=== PATIENT | male | born 1990 | race Caucasian/White ===

== ENCOUNTER 2017-01-17 20:20 | Emergency (ER) | payer SELFPAY ==
[2017-01-17] MEDS ORDERED: KETOROLAC TROMETHAMINE 60 MG/2 ML VIAL ONE (21:08)
--- NOTE | 2017-01-18 07:35 | RAD ---
Exam: Three-view left ankle COMPARISON: None INDICATION: Slip and fall, left ankle pain. FINDINGS: AP, lateral and oblique views of the left ankle were obtained. Mild soft tissue swelling is identified about the ankle and a small joint effusion cannot be excluded. Overall normal bone mineralization. Small sclerotic densities are seen within the talar dome and proximal first metatarsal, likely benign bone islands. No acute fracture is identified. Ankle mortise is intact. IMPRESSION: Mild soft tissue swelling and possible small joint effusion, however no acute osseous abnormality is identified within the left ankle.
== END 2017-01-17 21:43 | disposition home or self-care (01) ==
LOC: ED 20:20
DX: S93.402A Sprain of unspecified ligament of left ankle, initial encounter (principal); J45.909 Unspecified asthma, uncomplicated; F17.210 Nicotine dependence, cigarettes, uncomplicated; W01.198A Fall on same level from slipping, tripping and stumbling with subsequent striking against other object, initial encounter; Y93.39 Activity, other involving climbing, rappelling and jumping off; Y92.89 Other specified places as the place of occurrence of the external cause
CPT/HCPCS: 73610; 99284; 96372; 99283; J1885